=== PATIENT | male | born 1965 | race Caucasian/White ===

== ENCOUNTER 2019-10-22 11:52 | Emergency (ER) | payer BC ==
[~2019-10-22] VITALS: Ht 167.6 cm; Wt 90.7 kg
[2019-10-22] MEDS ORDERED: ZESTRIL40 M1 PO (12:30)
[2019-10-22] MEDS ORDERED: TIROSINT25 MCG PO (12:31)
== END 2019-10-22 17:00 | disposition home or self-care (01) ==
LOC: ER 11:52
DX: K52.89 Other specified noninfective gastroenteritis and colitis (principal)